=== PATIENT | male | born 1990 | race Caucasian/White ===

== ENCOUNTER 2019-12-14 11:21 | Outpatient (CLI) | payer SELFPAY ==
[2019-12-15 02:51] LABS: COVID-19 RT-PCR UVMMC Result Negative (Negative)
== END 2019-12-14 11:41 ==
PROVIDERS: PCP Nurse Practitioner; Visit Provider Nurse Practitioner
DX: R50.9 Fever, unspecified (principal); Z03.818 Encounter for observation for suspected exposure to other biological agents ruled out
CPT/HCPCS: U0003

== ENCOUNTER 2023-07-23 14:13 | Emergency (ER) | payer SELFPAY ==
[2023-07-23 14:16] VITALS: BP 158/61; PULSE 94; RESP 18; TEMP 37.2; O2SAT 97
[2023-07-23 14:29] LABS: Source Nasal/Nares
[2023-07-23] MEDS: Albuterol HFA 8 GM 60 PUFF INH IH (14:29)
[2023-07-23] MEDS: predniSONE 20 MG TAB 60 MG PO (14:29)
--- NOTE | 2023-07-23 14:35 | ED.GENADUL_ITS ---
HPI General Date/Time Provider Initiated Documentation: 07/23/23 14:18 . Limitations to Documentation: no limitations . Information obtained by: patient . HPI Narrative: 32-year-old gentleman without significant past medical history presents for evaluation of cough, sore throat, nasal congestion. Reports symptoms started yesterday. No documented fever. Cough productive of thick mucus. He reports that it is bloody and dark green in color. He is a smoker. Has tried some [id number]-[id number] cold medications without relief. Related Data Home Medications Medication Instructions Recorded Confirmed naproxen sodium 550 mg tablet 550 mg PO BID #30 tab-caps 05/09/17 07/23/23 benzonatate 100 mg capsule 100 mg PO BID-TID PRN cough #30 07/23/23 caps doxycycline monohydrate 100 mg 100 mg PO BID 7 days #14 caps 07/23/23 capsule prednisone 20 mg tablet 40 mg (2 x 20 mg) PO DAILY 4 days 07/23/23 #8 tabs promethazine 6.25 mg/5 mL oral 12.5 mg (10 mL) PO Q6H PRN cough 07/23/23 syrup #120 mL Previous Rx's Medication Instructions Recorded naproxen sodium 550 mg tablet 550 mg PO BID #30 tab-caps 05/09/17 benzonatate 100 mg capsule 100 mg PO BID-TID PRN cough #30 07/23/23 caps doxycycline monohydrate 100 mg 100 mg PO BID 7 days #14 caps 07/23/23 capsule prednisone 20 mg tablet 40 mg (2 x 20 mg) PO DAILY 4 days 07/23/23 #8 tabs promethazine 6.25 mg/5 mL oral 12.5 mg (10 mL) PO Q6H PRN cough 07/23/23 syrup #120 mL Allergies Allergy/AdvReac Type Severity Reaction Status Date / Time No Known Drug Allergies Allergy Unverified 07/23/23 14:21 General Stated Complaint: Sorethroat MAGDIEL: 4 Exam Narrative Exam Narrative: Review of Systems: All systems reviewed & are unremarkable except as noted in HPI and below Well-developed, no acute distress NCAT PERRL, normal conjunctiva RRR Unlabored respiratory effort, expiratory wheezes Nondistended abdomen Extremities w/o deformity, no cyanosis, no edema No rashes or lesions. no focal neurologic deficits Appropriate mood and affect Course Vital Signs Vital signs: Vital Signs Temperature 37.2 C 07/23/23 14:16 Pulse 94 H 07/23/23 14:16 Respiratory Rate 18 07/23/23 14:16 Blood Pressure 158/61 H 07/23/23 14:16 Pulse Oximetry 97 07/23/23 14:16 Temperature 37.2 C 07/23/23 14:16 Temperature Source Oral 07/23/23 14:16 Pulse 94 H 07/23/23 14:16 Respiratory Rate 18 07/23/23 14:16 Respiratory Effort Normal 07/23/23 14:20 Blood Pressure 158/61 H 07/23/23 14:16 Blood Pressure Position Sitting 07/23/23 14:16 Pulse Oximetry 97 07/23/23 14:16 Oxygen Delivery Method Room Air 07/23/23 14:16 Oxygen Flow Rate 0 07/23/23 14:16 Lab/Test Results Lab/Test Results: Laboratory Tests Range/Units 07/23/23 07/23/23 14:23 14:25 COVID-19 Source Cancelled Nasal/Nares SARS-CoV-2 (PCR) Cancelled Influenza Type A (PCR) Cancelled Influenza Type B (PCR) Cancelled RSV (PCR) Cancelled Medical Decision Making Emergent evaluation of URI symptoms. Initial differential includes viral illness, pneumonia, reactive airway disease. Patient has significant history of smoking. He is not hypoxic, but he does have wheezing. Will give albuterol and steroids. Will get chest x-ray to evaluate for possible pneumonia. Viral testing obtained as well. Viral testing negative. Strep throat test negative. X-ray with questionable right lower lobe infiltrate. Given symptoms and smoking history, will treat for atypical pneumonia with doxycycline. Will discharge with steroids, albuterol. And will give medication for cough. Patient referred to community care for primary care follow-up. Medical Records Medical records reviewed: Yes I reviewed the patient's medical records. Lab Data Lab results reviewed: Yes I reviewed the patient's lab results. Quality:SDOH Health Related Social Needs: No Data to Display PFSH All Active Problems (Updated 07/23/23 @ 15:07 by Eneida Kumar MD) URI (upper respiratory infection) (Acute) Atypical pneumonia (Acute) Fever (Acute) Cough (Acute) Medical History Opiate abuse BAART Family History Mother Alcohol abuse Father Heart disease Stroke Other Mental disorder Social History Smoking/Tobacco Use Status: Current every day Tobacco Type: cigarettes Smoking risk assessment performed?: Yes Alcohol Intake: current Alcohol Intake frequency: a few times a week Drug use: Current Sobriety Substance use type: does not use Housing: house Do you feel safe at home: Yes Do you feel safe in your relationship?: Yes Discharge Plan Disposition Patient Disposition: Home Discharge Details Clinical Impression: Atypical pneumonia, URI (upper respiratory infection), Cough Primary Care Provider: Unknown,Unknown ED Provider: Eneida Kumar Home Meds and New Rx's Prescriptions: New promethazine 6.25 mg/5 mL syrup 12.5 mg PO Q6H PRN (Reason: cough) Qty: 120 0RF benzonatate 100 mg capsule 100 mg PO BID-TID PRN (Reason: cough) Qty: 30 0RF doxycycline monohydrate 100 mg capsule 100 mg PO BID 7 Days Qty: 14 0RF prednisone 20 mg tablet 40 mg PO DAILY 4 Days Qty: 8 0RF No Action naproxen sodium 550 MG tablet 550 mg PO BID Qty: 30 0RF Discharge Instructions Instructions: Upper Respiratory Infection (ED) Additional Instructions: use albuterol inhaler with spacer 2 puffs every 4 -6 hours to help with cough cough medicines (pearles and promethazine syrup) can also help take antibiotics as prescribed for full course start steroid prescription tomorrow follow up with your PCP Discharge Data Discharge Date/Time-TO BE ENTERED AT DEPARTURE: 07/23/23 15:21
--- NOTE | 2023-07-23 14:48 | DI.RAD_ITS ---
Exam(s) XR CHEST 2V PA LATERAL EXAM: XR CHEST 2V PA LATERAL CLINICAL HISTORY: cough. TECHNIQUE: 2D digital imaging was performed. COMPARISON: CR CHEST 2 VIEWS PA,LAT from 04/21/2015 FINDINGS: 2 views: Heart size is normal. The mediastinum is not widened. Left lung is presently clear. There is vertical atelectasis or scarring in the right lower lobe post erior basal segment. No pleural effusions. No pneumothorax. IMPRESSION: Scarring or platelike atelectasis in the right lower lobe which was not evident on the most recent est x-ray of 2014. The infiltrate which was evident in the left lung in 2015 is no longer seen. DATA REPOSITORY: RADIATION DOSE DELIVERED:
[2023-07-23 15:10] LABS: COVID-19 PCR Negative (Negative)
== END 2023-07-23 15:21 | disposition home or self-care (01) ==
PROVIDERS: Emergency Provider Emergency Medicine
DX: J18.9 Pneumonia, unspecified organism (principal); J06.9 Acute upper respiratory infection, unspecified; R05.9 Cough, unspecified; F17.210 Nicotine dependence, cigarettes, uncomplicated; Z11.52 Encounter for screening for COVID-19
CPT/HCPCS: 87635; 87637; 99284; 71046; 87081; 99283; J7512

== ENCOUNTER 2024-12-20 10:03 | Emergency (ER) | payer SELFPAY ==
[2024-12-20 10:06] VITALS: BP 138/78; PULSE 88; RESP 18; TEMP 36.4; O2SAT 98
--- NOTE | 2024-12-20 10:15 | DI.RAD_ITS ---
Exam(s) XR KNEE LT 3V AP,LAT,SHUKRI EXAM: XR KNEE LT 3V AP,LAT,SHUKRI CLINICAL HISTORY: hyperextended, pain generalized. TECHNIQUE: 2D digital imaging was performed. Three views. COMPARISON: No exams were available for comparison FINDINGS: BONES: No acute fracture is present. No bony destructive lesion is seen. Small exostosis at the proximal fibula. JOINTS: The knee is normally aligned. No joint effusion is seen. SOFT TISSUE: Normal. IMPRESSION: No acute abnormality. DATA REPOSITORY: RADIATION DOSE DELIVERED:
--- NOTE | 2024-12-20 10:15 | DI.RAD_ITS ---
Exam(s) XR ANKLE LT COMPLETE EXAM: XR ANKLE LT COMPLETE CLINICAL HISTORY: lateral malleolus pain, rolled TECHNIQUE: 2D digital imaging was performed. Three views. COMPARISON: No exams were available for comparison FINDINGS: BONES: No acute fracture is present. No bony destructive lesion is seen. JOINTS:The ankle mortise is normally aligned. SOFT TISSUE: Swelling around the malleoli, greater laterally. IMPRESSION: Soft tissue swelling. The preliminary [facility] report was reviewed. DATA REPOSITORY: RADIATION DOSE DELIVERED:
[2024-12-20] MEDS: Ibuprofen 600 MG TAB PO (10:23)
--- NOTE | 2024-12-20 10:24 | ED.GENADUL_ITS ---
Discharge Plan Disposition Patient Disposition: Home Condition: Stable Discharge Details Clinical Impression: Left ankle sprain Primary Care Provider: None,None ED Provider: Barbi Schaeffer Home Meds and New Rx's Prescriptions: No Action No Known Home Meds Discharge Instructions Instructions: Ankle Sprain ED Additional Instructions: You were seen in the emergency department today for evaluation of an ankle injury and were found to have an ankle sprain. In our department you had a full physical examination performed, and the x-ray imaging that did not show any broken bones. You were placed in a splint and given crutches. Please wear the splint when you are up and about. It is safe for you to put weight on the ankle and you should do so as your pain improves. Please continue to use ice and elevation for swelling. Please use therapeutic dosing of Tylenol (acetaminophen) & Advil (ibuprofen) in an alternating fashion as follows: Take 1000mg of Tylenol every 6 hours without missing doses- that is 4 times per day. [facility] in between the Tylenol doses, take 600mg of Advil also on a 6 hour schedule, that is also 4 times per day. With this strategy, you will be taking something for fever/pain as often as every 3 hours. The daily maximum dosing of Tylenol is 4000mg, and the daily maximum dosing of Advil is 2400mg. Please note that some common cold medications & prescription pain medications may contain acetaminophen and you need to read OTC drug labels and factor that in to maximum daily doses. Please follow-up with your primary care provider in the next few days to discuss this visit and any symptoms that change, worsen, or persist. Thank you for allowing us to be part of your care. Stand Alone Forms: Work Release HPI General Mode of arrival: ambulatory . Date/Time Provider Initiated Documentation: 12/20/24 10:12 . Limitations to Documentation: no limitations . Information obtained by: patient, family and old records reviewed . HPI Narrative: This is a 34-year-old male patient presenting for a left ankle injury. The patient reports that he was roughhousing with his brother, and injured his ankle, feels like he rolled it and has some lateral pain. He also initially had some generalized knee pain which seems to be improving. He was able to walk on it, but rolled it again while doing firewood, and since that time has had significant pain with weightbearing. He took some Tylenol last night without significant improvement, noted some swelling on the lateral aspect of the ankle. Prior to this event he was in his normal state of health, states that he has not had any other injuries or trauma, did not fall or strike his head. Endorses some tingling of the foot distal to this injury, full strength Related Data Home Medications ?Medication ?Instructions ?Recorded ?Confirmed Unknown [No Known Home Meds] 12/20/24 0 12/20/24 Allergies Allergy/AdvReac Type Severity Reaction Status Date / Time No Known Drug Allergies Allergy Unknown Verified 12/20/24 10:18 General Stated Complaint: Orthopedic MAGDIEL: 4 Exam Narrative Exam Narrative: Gen: Awake and alert, in no apparent distress HEENT: Non-icteric sclera Neck: Supple Lungs: No apparent respiratory distress, normal respiratory effort. CV: Appears well perfused, strong distal pulses Abdomen: Non-distended MSK: Moves 4 extremities without apparent limitation in ROM with the exception of the left lower extremity. The patient has obvious swelling overlying the lateral malleoli with tenderness palpation at the posterior and anterior aspects. He has no skin breaks, no tenderness or reproduction of pain with stressing of the syndesmosis. He has some slight knee pain to palpation over the lateral joint line, no specific tenderness over the proximal fibula. He has no midfoot tenderness or deformity. Skin: Visualized skin without rashes, cyanosis. Neuro: No obvious focal deficits or facial asymmetry. CSM's intact distal to this injury of the left lower extremity. Speaks in full, clear sentences. Psych: Appropriate for situation. Course Vital Signs Vital signs: Vital Signs Temperature 36.4 C L 12/20/24 10:06 Pulse 88 12/20/24 10:06 Respiratory Rate 18 12/20/24 10:06 Blood Pressure 138/78 12/20/24 10:06 Pulse Oximetry 98 12/20/24 10:06 Temperature 36.4 C L 12/20/24 10:06 Temperature Source Oral 12/20/24 10:06 Pulse 88 12/20/24 10:06 Respiratory Rate 18 12/20/24 10:06 Blood Pressure 138/78 12/20/24 10:06 Pulse Oximetry 98 12/20/24 10:06 Oxygen Delivery Method Room Air 12/20/24 10:06 Oxygen Flow Rate 0 12/20/24 10:06 Pain Level 5 12/20/24 10:14 Medical Decision Making This is a 34-year-old male patient presenting for evaluation of a left ankle injury. My differential includes but is not limited to sprain, strain, fracture, dislocation, certainly considered knee injury and proximal fibula injury. I have a lower concern for neurovascular derangement on my physical examination, and reassuringly this is isolated to the left lower extremity. I will provide the patient with ibuprofen, an ice pack, and obtain x-ray imaging of the affected left ankle and left knee. - I independently interpreted the patient's x-ray imaging, which shows no evidence of fracture or dislocation. I am most concerned for ankle sprain, placed the patient in a lace up ankle splint and provided him with crutches. I counseled him on multimodal pain management and provided him with a referral to establish with primary care. At this time, the patient has had a full medical evaluation and is safe for discharge to home. They are hemodynamically stable, ambulatory, and tolerating PO. They are understanding of the follow-up plan and return precautions. They left our facility without incident. Barbi Schaeffer MD [facility] All Active Problems (Updated 12/20/24 @ 11:49 by Barbi Schaeffer MD) Left ankle sprain (Acute) Fever (Acute) Cough (Acute) Medical History Opiate abuse BAART Family History Mother Alcohol abuse Father Heart disease Stroke Other Mental disorder Social History Smoking/Tobacco Use Status: Current every day Tobacco Type: cigarettes Smoking risk assessment performed?: Yes Alcohol Intake: current Alcohol Intake frequency: a few times a week Drug use: Current Sobriety Substance use type: does not use Housing: house Do you feel safe at home: Yes Do you feel safe in your relationship?: Yes
--- NOTE | 2024-12-20 11:19 | DI.[facility]_ITS ---
PROCEDURE INFORMATION: Exam: XR Left Knee Exam date and time: 12/20/2024 10:42 AM Age: 34 years old Clinical indication: Other: Hyperextended, pain generalized TECHNIQUE: Imaging protocol: Radiologic exam of the left knee. Views: 3 views. COMPARISON: No relevant prior studies available. FINDINGS: Bones/joints: Normal. Tug lesion proximal fibula. Soft tissues: Normal. IMPRESSION: No acute findings. Dictated and Authenticated by: Mayito Marvin MD. Orderin [facility] Terell Landon MD
--- NOTE | 2024-12-20 11:19 | DI.[facility]_ITS ---
PROCEDURE INFORMATION: Exam: XR Left Ankle Exam date and time: 12/20/2024 10:45 AM Age: 34 years old Clinical indication: Other: Lateral malleolus pain, rolled TECHNIQUE: Imaging protocol: Radiologic exam of the left ankle. Views: 3 or more views. COMPARISON: CR XR KNEE LT 3V AP,LAT,SHUKRI 12/20/2024 10:42 AM FINDINGS: Bones/joints: Normal. Soft tissues: Soft tissue swelling. IMPRESSION: No fracture. Dictated and Authenticated by: Mayito Marvin MD. Orderin [facility] Terell Landon MD
== END 2024-12-20 12:15 | disposition home or self-care (01) ==
PROVIDERS: Emergency Provider Emergency Medicine
DX: S93.402A Sprain of unspecified ligament of left ankle, initial encounter (principal); X58.XXXA Exposure to other specified factors, initial encounter; M25.562 Pain in left knee
CPT/HCPCS: 99283; 99284; 29515; 73562; 73610

== ENCOUNTER 2025-03-04 04:12 | Outpatient (CLI) | payer SELFPAY ==
[2025-03-04 13:48] LABS: Cholesterol 203 mg/dL (<200); HDL Cholesterol 28 mg/dL (>or=40); TSH 1.37 uIU/mL (0.36-3.74); Triglyceride 947 mg/dL (<150)
== END 2025-03-04 04:13 | disposition home or self-care (01) ==
PROVIDERS: PCP Family Medicine; Visit Provider Family Medicine
DX: Z82.49 Family history of ischemic heart disease and other diseases of the circulatory system (principal); E66.811 Obesity, class 1; E66.09 Other obesity due to excess calories
CPT/HCPCS: 36415; 80061; 83721; 84443